=== PATIENT | male | born 1980 | race Caucasian/White ===

== ENCOUNTER → 2018-09-29 | Outpatient (CLI) | payer OTHER ==
[~2018-09-29] MED LIST: /CIPR75TA OR; ACET65TA OR; COLA100C2 OR; COLA100C2 PO; FLAG500T OR; FLAG500T PO; FLUC10TA OR; No Historical Meds; PERC5TAB8 OR; PERC5TAB8 PO; PERC7.5T8 OR; PERC7.5T8 PO
[2018-09-29 12:03] LABS: BASO % 0.8 % (0.0-1.0); EOS # 0.2 10^3/uL (0.0-0.50); EOS % 3.1 % (0.0-3.0); HEMATOCRIT 44.7 % (42.0-52.0); HEMOGLOBIN 15.5 g/dl (13.5-17.5); LYMPH # 1.4 10^3/uL (1.5-4.5); LYMPH % 27.3 % (24.0-44.0); MEAN CORPUSCULAR HEMOGLOBIN 30.3 pg (27.0-33.0); MEAN CORPUSCULAR HGB CONC 34.7 g/dl (32.0-36.5); MEAN CORPUSCULAR VOLUME 87.5 fl (80.0-96.0); MONO # 0.5 10^3/uL (0.0-0.8); MONO % 9.4 % (0.0-5.0); NEUTROPHILS # 3.1 10^3/uL (1.8-7.7); NEUTROPHILS % 58.8 % (36.0-66.0); PLATELET COUNT, AUTOMATED 295 10^3/uL (150-450); RED BLOOD COUNT 5.11 10^6/uL (4.30-6.10); WHITE BLOOD COUNT 5.2 10^3/uL (4.0-10.0)
[2018-09-29 12:31] LABS: ALBUMIN 4.7 GM/DL (3.2-5.2); ALT/SGPT 39 U/L (12-78); BILIRUBIN,TOTAL 0.9 MG/DL (0.2-1.0); BLOOD UREA NITROGEN 15 MG/DL (7-18); CARBON DIOXIDE LEVEL 28 MEQ/L (21-32); CHLORIDE LEVEL 104 MEQ/L (98-107); CHOLESTEROL LEVEL 217 MG/DL (<200); CHOLESTEROL RISK RATIO 4.822 (<5); CREATININE FOR GFR 0.87 MG/DL (0.70-1.30); FREE T4 1.08 NG/DL (0.76-1.46); GLOMERULAR FILTRATION RATE > 60.0 (>60); GLUCOSE, FASTING 102 MG/DL (70-100); HDL CHOLESTEROL 45 MG/DL (>40); LDL CHOLESTEROL 137 MG/DL (<100); NON-HDL-C 172 MG/DL; SODIUM LEVEL 140 MEQ/L (136-145); THYROID STIMULATING HORMONE 0.731 uIU/ML (0.358-3.740); TOTAL PROTEIN 7.8 GM/DL (6.4-8.2); TRIGLYCERIDES LEVEL 177 MG/DL (<150)
[2018-09-29 12:50] LABS: HEMOGLOBIN A1c 5.3 %
== END ==
LOC: M LAB 11:09
PROVIDERS: ATTEND Physician Assistant
DX: Z13.29 Encounter for screening for other suspected endocrine disorder (principal)

== ENCOUNTER → 2018-10-14 | Outpatient (CLI) | payer OTHER ==
--- NOTE | 2018-10-14 12:46 | REP ---
CT ABDOMEN AND PELVIS WITHOUT CONTRAST: CT abdomen and pelvis performed without oral or IV contrast. Sagittal and coronal reconstruction images are performed. Minimal fibrotic changes are seen in the visualized lung bases. The liver, spleen, adrenals, pancreas, and kidneys are grossly unremarkable. There is no abdominal aortic aneurysm. There is no adenopathy. There is no free air or free fluid. I see no bowel wall thickening. However there is a hernia of the anterior abdominal wall in the midline at the level of the upper abdomen containing omental fat and a small amount of transverse colon protrudes into the hernia defect. Just below that there is a wide right sided anterior abdominal wall defect containing fat and normal small bowel. Just below that there is a small defect in the anterior abdominal wall containing a small amount of fat. On the left at the level of the pelvis there is a wide anterior abdominal wall defect containing a large amount of fat and normal small bowel loops. Surgical sutures are seen at a sigmoid anastomosis and there are surrounding metallic clips in the pericolonic fat. No pelvic mass is seen. Urinary bladder is not well distended and not well evaluated. IMPRESSION: Several anterior abdominal wall defects as discussed in detail above with two prominent defects seen, one on the right and one on the left, containing fat and normal appearing small bowel loops. Electronically Signed by Michael Gutierrez MD 10/14/2018 04:42 P
== END ==
LOC: M RAD 10:30
PROVIDERS: ATTEND Surgery
DX: R10.9 Unspecified abdominal pain (principal)

== ENCOUNTER → 2018-11-17 | Outpatient (CLI) | payer MEDICAID, OTHER ==
--- NOTE | 2018-11-22 17:59 | SLEEPHOME ---
DATE OF PROCEDURE: 11/17/2018 ORDERED BY: Rei Childress and Dr. [facility]. Diagnostic home sleep testing was performed due to concern for the obstructive sleep apnea syndrome. For testing, nocturnal T3 respiratory monitoring device was used. Continuous record made of pulse, oxygen saturation, airflow, chest, abdominal strain and body position. 10 hours and 59 minutes of data were reviewed. Of these, 6 hours and 43 minutes were marked as time in bed. During the interval marked time in bed, there were 208 respiratory events identified of 10 seconds in duration or greater for a respiratory event index of 31. The events were primarily obstructive but about 60 of the 208 events were either central or mixed apneas. The patient's baseline pulse rate was 43, pulse rate ranged from 26-121. Baseline saturation was 95%. Saturations fell as low as 83% and testing was performed in both the supine and nonsupine positions. IMPRESSION: Abnormal home sleep testing with repetitive respiratory events and oxygen desaturations to 83% with a respiratory event index of 31 is consistent with the obstructive sleep apnea syndrome. RECOMMENDATIONS: Given the frequency of events and the occurrence of central and mixed apneas, referral for a formal sleep evaluation is recommended.
== END ==
LOC: M SLEEP HO 09:59
PROVIDERS: ATTEND Physician Assistant
DX: G47.39 Other sleep apnea (principal)

== ENCOUNTER → 2019-03-17 | Outpatient (CLI) | payer OTHER ==
[2019-03-17 13:43] LABS: BASO # 0.1 10^3/uL (0.0-0.2); BASO % 0.9 % (0.0-1.0); EOS # 0.2 10^3/uL (0.0-0.5); EOS % 3.3 % (0.0-3.0); HEMATOCRIT 45.9 % (42.0-52.0); HEMOGLOBIN 15.9 g/dl (13.5-17.5); LYMPH # 1.8 10^3/uL (1.5-5.0); LYMPH % 28.8 % (24.0-44.0); MEAN CORPUSCULAR HEMOGLOBIN 31.1 pg (27.0-33.0); MEAN CORPUSCULAR HGB CONC 34.6 g/dl (32.0-36.5); MEAN CORPUSCULAR VOLUME 89.6 fl (80.0-96.0); MONO # 0.5 10^3/uL (0.0-0.8); MONO % 7.1 % (0.0-5.0); NEUTROPHILS # 3.8 10^3/uL (1.5-8.5); NEUTROPHILS % 59.6 % (36.0-66.0); PLATELET COUNT, AUTOMATED 297 10^3/uL (150-450); RED BLOOD COUNT 5.12 10^6/uL (4.30-6.10); WHITE BLOOD COUNT 6.3 10^3/uL (4.0-10.0)
[2019-03-17 14:06] LABS: INR 0.94; PROTHROMBIN TIME 12.3 SECONDS (11.8-14.0)
[2019-03-17 14:07] LABS: PARTIAL THROMBOPLASTIN TIME 28.6 SECONDS (25.0-38.4)
[2019-03-17 14:18] LABS: ALBUMIN 4.3 GM/DL (3.2-5.2); ALT/SGPT 42 U/L (12-78); BILIRUBIN,TOTAL 0.6 MG/DL (0.2-1.0); BLOOD UREA NITROGEN 11 MG/DL (7-18); CALCIUM LEVEL 9.2 MG/DL (8.5-10.1); CARBON DIOXIDE LEVEL 28 MEQ/L (21-32); CHLORIDE LEVEL 104 MEQ/L (98-107); CHOLESTEROL LEVEL 197 MG/DL (<200); CHOLESTEROL RISK RATIO 4.804 (<5); GLOMERULAR FILTRATION RATE > 60.0 (>60); GLUCOSE, FASTING 85 MG/DL (70-100); HDL CHOLESTEROL 41 MG/DL (>40); LDL CHOLESTEROL 125 MG/DL (<100); NON-HDL-C 156 MG/DL; POTASSIUM SERUM 3.9 MEQ/L (3.5-5.1); SODIUM LEVEL 139 MEQ/L (136-145); TOTAL PROTEIN 7.8 GM/DL (6.4-8.2); TRIGLYCERIDES LEVEL 153 MG/DL (<150)
== END ==
LOC: M LAB 12:43
PROVIDERS: ATTEND Physician Assistant
DX: Z01.818 Encounter for other preprocedural examination (principal); E78.2 Mixed hyperlipidemia; K43.9 Ventral hernia without obstruction or gangrene

== ENCOUNTER → 2019-03-17 | Outpatient (CLI) | payer OTHER ==
[2019-03-17 13:44] LABS: BASO # 0.1 10^3/uL (0.0-0.2); EOS # 0.2 10^3/uL (0.0-0.5); EOS % 3.3 % (0.0-3.0); HEMATOCRIT 46.1 % (42.0-52.0); HEMOGLOBIN 15.7 g/dl (13.5-17.5); LYMPH # 1.8 10^3/uL (1.5-5.0); LYMPH % 28.4 % (24.0-44.0); MEAN CORPUSCULAR HEMOGLOBIN 30.4 pg (27.0-33.0); MEAN CORPUSCULAR HGB CONC 34.1 g/dl (32.0-36.5); MEAN CORPUSCULAR VOLUME 89.3 fl (80.0-96.0); MONO # 0.5 10^3/uL (0.0-0.8); MONO % 7.3 % (0.0-5.0); NEUTROPHILS # 3.7 10^3/uL (1.5-8.5); NEUTROPHILS % 59.7 % (36.0-66.0); PLATELET COUNT, AUTOMATED 303 10^3/uL (150-450); RED BLOOD COUNT 5.16 10^6/uL (4.30-6.10); WHITE BLOOD COUNT 6.3 10^3/uL (4.0-10.0)
[2019-03-17 14:16] LABS: ALBUMIN 4.4 GM/DL (3.2-5.2); ALT/SGPT 41 U/L (12-78); BILIRUBIN,DIRECT 0.1 MG/DL (0.0-0.2); BILIRUBIN,TOTAL 0.6 MG/DL (0.2-1.0); BLOOD UREA NITROGEN 11 MG/DL (7-18); CALCIUM LEVEL 9.8 MG/DL (8.5-10.1); CARBON DIOXIDE LEVEL 29 MEQ/L (21-32); CHLORIDE LEVEL 105 MEQ/L (98-107); CREATININE FOR GFR 0.88 MG/DL (0.70-1.30); GLOMERULAR FILTRATION RATE > 60.0 (>60); GLUCOSE, FASTING 84 MG/DL (70-100); SODIUM LEVEL 141 MEQ/L (136-145)
== END ==
LOC: M LAB 12:45
DX: K43.2 Incisional hernia without obstruction or gangrene (principal)

== ENCOUNTER → 2019-04-19 | Outpatient (REF) | payer OTHER | LOC: M LAB REF 17:27 | PROVIDERS: ATTEND Physician Assistant | DX: R10.84 Generalized abdominal pain (principal) ==

== ENCOUNTER → 2019-04-19 | Outpatient (CLI) | payer OTHER ==
[2019-04-19 14:31] LABS: BASO # 0.1 10^3/uL (0.0-0.2); BASO % 0.8 % (0.0-1.0); EOS # 0.2 10^3/uL (0.0-0.5); EOS % 1.9 % (0.0-3.0); HEMATOCRIT 38.3 % (42.0-52.0); HEMOGLOBIN 12.6 g/dl (13.5-17.5); LYMPH # 1.3 10^3/uL (1.5-5.0); LYMPH % 15.3 % (24.0-44.0); MEAN CORPUSCULAR HEMOGLOBIN 30.3 pg (27.0-33.0); MEAN CORPUSCULAR HGB CONC 32.9 g/dl (32.0-36.5); MEAN CORPUSCULAR VOLUME 92.1 fl (80.0-96.0); MONO # 0.5 10^3/uL (0.0-0.8); MONO % 5.9 % (0.0-5.0); NEUTROPHILS # 6.4 10^3/uL (1.5-8.5); NEUTROPHILS % 74.8 % (36.0-66.0); PLATELET COUNT, AUTOMATED 795 10^3/uL (150-450); RED BLOOD COUNT 4.16 10^6/uL (4.30-6.10); WHITE BLOOD COUNT 8.6 10^3/uL (4.0-10.0)
[2019-04-19 14:57] LABS: ALBUMIN 4.3 GM/DL (3.2-5.2); ALT/SGPT 28 U/L (12-78); BILIRUBIN,DIRECT 0.1 MG/DL (0.0-0.2); BILIRUBIN,TOTAL 0.3 MG/DL (0.2-1.0); BLOOD UREA NITROGEN 13 MG/DL (7-18); C REACTIVE PROTEIN QUANTITATIV 0.68 MG/DL (0.00-0.30); CALCIUM LEVEL 9.7 MG/DL (8.5-10.1); CARBON DIOXIDE LEVEL 31 MEQ/L (21-32); CHLORIDE LEVEL 103 MEQ/L (98-107); CREATININE FOR GFR 0.88 MG/DL (0.70-1.30); GLOMERULAR FILTRATION RATE > 60.0 (>60); GLUCOSE, FASTING 101 MG/DL (70-100); LIPASE 146 U/L (73-393); POTASSIUM SERUM 4.8 MEQ/L (3.5-5.1); SODIUM LEVEL 138 MEQ/L (136-145); TOTAL PROTEIN 8.5 GM/DL (6.4-8.2)
== END ==
LOC: M LAB 12:25
PROVIDERS: ATTEND Physician Assistant
DX: R10.84 Generalized abdominal pain (principal)